=== PATIENT | male | born 1990 | race Hispanic/Latino ===

== ENCOUNTER 2018-01-27 15:52 | Emergency (ER) | payer OTHER ==
[2018-01-27 15:56] VITALS: BP 112/67; RESP 16; TEMP 98.4; O2SAT 97
[2018-01-27 16:48] LABS: BASO % 0.6 % (0.0-2.0); EOS # 0.1 K/uL (0.0-0.7); EOS % 2.3 % (0.0-4.0); HEMOGLOBIN 13.8 g/dL (12.0-18.0); LYMPH # 1.4 K/uL (1.0-4.3); MEAN CELL VOLUME 88.4 fl (80.0-94.0); MEAN CORPUSCULAR HEMOGLOBIN 29.5 pg (27.0-31.0); MEAN CORPUSCULAR HGB CONC 33.3 g/dL (33.0-37.0); MONO # 0.4 K/uL (0.0-0.8); MONO % 6.6 % (0.0-10.0); NEUT # 4.1 K/uL (1.8-7.0); NEUT % 67.5 % (50.0-75.0); RBC 4.69 Mil/uL (4.40-5.90); RED CELL DISTRIBUTION WIDTH 13.1 % (11.5-14.5)
--- NOTE | 2018-01-27 16:50 | ED PDOC ---
HPI: Seizure Time Seen by Provider: 01/27/18 15:59 Chief Complaint (Nursing): Seizure Chief Complaint (Provider): Seizure History Per: Patient History/Exam Limitations: no limitations Recent Seizure Activity Began: Just Before Arrival Number Of Seizures: One Length Of Seizures (Duration): Seconds (30) Associated Symptoms: denies: Bit Tongue, Incontinence Of Urine, Incontinence Of Stool Post-ictal Period: No Additional Complaint(s): 27 y/o male with no significant PMHx presents to the ED complaining of back pain , onset Wednesday. Patient reports pain began after waking up from a nap on his couch. Patient states he was in the same "funny" position for a few hours. Patient reports pain has worsened since onset. Patient also reports of taking Advil and aleve with minimal relief. Patient went to [facility] today and during his evaluation, the provider caused a lot of pain in his back. Patient reports he lost consciousness and woke up 30 seconds later. Patient was told he fainted but also had convulsive activity. In addition, patient complains of numbness to his right great toe that has been ongoing for months intermittently. Denies urine incontinence, tongue injury, post-ictal state, waking up with fogginess, head injury, history of fainting episodes, bowel and urinary incontinence/ retention, leg weakness, fever, chills, night sweats, unexplained weight loss, hematuria, dysuria and frequency. PMD: No Provider Past Medical History Reviewed: Historical Data, Nursing Documentation, Vital Signs Vital Signs: Last Vital Signs Temp 98.4 F 01/27/18 15:56 Pulse 60 01/27/18 18:06 Resp 16 01/27/18 15:56 BP 112/67 01/27/18 15:56 Pulse Ox 97 01/27/18 18:06 - Medical History PMH: No Chronic Diseases - Surgical History Surgical History: No Surg Hx - Family History Family History: States: No Known Family Hx - Social History Current smoker - smoking cessation education provided: No - Home Medications Home Medications: Ambulatory Orders Medication Instructions Recorded Cyclobenzaprine [Flexeril] 5 mg PO Q8 PRN #15 tab 01/27/18 Ibuprofen [Motrin Tab] 600 mg PO Q8 PRN #60 tab 01/27/18 Lidocaine 5% [Lidoderm] 1 ea TD DAILY PRN #20 patch 01/27/18 traMADol [Ultram] 50 mg PO TID #15 tab 01/27/18 - Allergies Allergies/Adverse Reactions: Allergies Allergy/AdvReac Type Severity Reaction Status Date / Time No Known Allergies Allergy Verified 01/27/18 15:55 Review of Systems ROS Statement: Except As Marked, All Systems Reviewed And Found Negative (as per HPI) Constitutional: Negative for: Fever, Chills, Sweats (night), Other (post-ictal state, fogginess, head injury, unexplained weight loss) ENT: Negative for: Other (Tongue biting) Genitourinary Male: Negative for: Dysuria, Frequency, Incontinence, Hematuria Musculoskeletal: Positive for: Back Pain Neurological: Positive for: Seizures (Possible), Other (loss of conciousness). Negative for: Weakness (leg) Physical Exam - Reviewed Nursing Documentation Reviewed: Yes Vital Signs Reviewed: Yes - Physical Exam Appears: Positive for: Well, Non-toxic, In Acute Distress (mild, painful distress) Back: Positive for: Normal Inspection, Muscle Spasm, Other (Tenderness to palpation to the midline Lumbar spine, no step off or prepidice. Mild paraspinal lumbar tenderness to palpation with mild spasm; Negative bilateral straight leg raise.) Neurologic/Psych: Positive for: Alert, Oriented, Other (5/5 strength in the bilateral lower extremities). Negative for: Motor/Sensory Deficits - Laboratory Results Result Diagrams: 01/27/18 16:40 01/27/18 16:40 - ECG ECG Rhythm: Positive for: Normal QRS, Normal ST Segment, Sinus Rhythm Rate: 60 O2 Sat by Pulse Oximetry: 97 (RA) Pulse Ox Interpretation: Normal Medical Decision Making Medical Decision Making: Time: 1640 Impression: Acute back pain and syncope Differentials include but not limited to Herniated risk, muscle strain, muscle spasms, electrolyte abnormality, anemia, arrhythmia and dehydration. Plan: -- EKG -- CMP -- Magnesium -- Phosphorus -- CBC with differentials -- Glucose, POC -- Flexeril 10 mg PO -- Lidoderm 1 ea TD -- Toradol 15 mg IVP -- Tylenol 975 mg PO -- IV Insertion -- LS Spine AP/LAT XR Accession No. : [id number] Patient Name / ID : PATTIE FRANCIS / [id number] Exam Date : 01/27/2018 16:23:47 ( Approved ) Study Comment : Sex / Age : M / 27Y Creator : Melinda Scott V. Dictator : Melinda Scott V. Emt B : Tariff Supervisor : Melinda Scott V. Approver2 : Report Date : 01/27/2018 17:04:53 My Comment : Date of service: 01/27/2018 PROCEDURE: Radiographs of the Lumbar Spine. HISTORY: back pain severe lumbar COMPARISON: No prior. FINDINGS: BONES: Normal alignment. No listhesis. No fracture. DISC SPACES: L4-5 disc space narrowing OTHER FINDINGS: On the frontal view there is S tubing projecting over the GE junction- this may be extrinsic to the patient. Not seen on the lateral views. Correlate clinically. IMPRESSION: No osseous abnormality appreciated. L4-5 disc space narrowing Other findings -as above. Labs unremarkable DW pt findings and plan of care. Conservative management. Follow up PMD/ physical therapy. Questions/concerns answered/addressed. Scribe Attestation: Documented by Sintia Daly acting as a scribe for Dr. Tere Garcia. Provider Scribe Attestation: All medical record entries made by the Scribe were at my direction and personally dictated by me. I have reviewed the chart and agree that the record accurately reflects my personal performance of the history, physical exam, medical decision making, and the department course for this patient. I have also personally directed, reviewed, and agree with the discharge instructions and disposition. Disposition - Clinical Impression Clinical Impression: Low back pain, Syncope Counseled Patient/Family Regarding: Studies Performed, Diagnosis, Need For Followup, Rx Given - Disposition Referrals: [facility] [Outside] - 01/28/18 Disposition: Routine/Home Disposition Time: 18:43 Condition: STABLE Additional Instructions: FOLLOW UP WITH YOUR DOCTOR OR [facility] IN 24-48 HOURS FOR REEVALUATION AND FOR ASSISTANCE WITH REFERRAL TO PHYSICAL THERAPY TAKE MEDICATIONS PRESCRIBED RETURN TO ER IMMEDIATELY FOR: --SEVERE INTRACTABLE PAIN --DENSE NUMBNESS OR WEAKNESS OF LEGS --BOWEL OR URINE INCONTINENCE --ANY OTHER WORRISOME SYMPTOMS TITO BLANKENSHIP, thank you for letting us take care of you today. Your provider was Tere Garcia MD and you were treated for back pain and fainting. The emergency medical care you received today was directed at your acute symptoms. If you were prescribed any medication, please fill it and take as directed. It may take several days for your symptoms to resolve. Return to the Emergency Department if your symptoms worsen, do not improve, or if you have any other problems. Please contact your doctor or call one of the physicians/clinics you have been referred to that are listed on the Patient Visit Information form that is included in your discharge packet. Bring any paperwork you were given at discharge with you along with any medications you are taking to your follow up visit. Our treatment cannot replace ongoing medical care by a primary care provider outside of the emergency department. Thank you for allowing the [facility] team to be part of your care today. Prescriptions: Cyclobenzaprine [Flexeril] 5 mg PO Q8 PRN #15 tab PRN Reason: muscle spasm Ibuprofen [Motrin Tab] 600 mg PO Q8 PRN #60 tab PRN Reason: Pain, Moderate (4-7) Lidocaine 5% [Lidoderm] 1 ea TD DAILY PRN #20 patch PRN Reason: PAIN traMADol [Ultram] 50 mg PO TID #15 tab Instructions: Low Back Pain in Adults, Syncope (Fainting) (DC) Forms: [employer] ([place]), [facility] ED School/Work Excuse
[2018-01-27] MEDS ORDERED: Lidocaine 5% Patch TD ONE (16:59)
[2018-01-27] MEDS: Lidocaine 5% Patch TD STA (16:59)
[2018-01-27 17:03] VITALS: PULSE 60
[2018-01-27] MEDS: Sodium Chloride 0.9% 1,000 ML IV STA (17:04)
[2018-01-27 17:06] LABS: ALB/GLOB RATIO 1.7 (1.0-2.1); ALT/SGPT 25 U/L (21-72); AST/SGOT 21 U/L (17-59); BLOOD UREA NITROGEN 13 mg/dl (9-20); CALCIUM 9.1 mg/dL (8.4-10.2); GFR AFRICAN-AMERICAN > 60; GFR NON-AFRICAN AMERICAN > 60
--- NOTE | 2018-01-27 17:06 | RAD ---
Date of service: 01/27/2018 PROCEDURE: Radiographs of the Lumbar Spine. HISTORY: back pain severe lumbar COMPARISON: No prior. FINDINGS: BONES: Normal alignment. No listhesis. No fracture. DISC SPACES: L4-5 disc space narrowing OTHER FINDINGS: On the frontal view there is S tubing projecting over the GE junction- this may be extrinsic to the patient. Not seen on the lateral views. Correlate clinically. IMPRESSION: No osseous abnormality appreciated. L4-5 disc space narrowing Other findings -as above.
--- NOTE | 2018-01-28 07:22 | CARD ---
APPROVED REPORT Date of service: 01/27/2018 <Conclusion> Normal sinus rhythm Normal ECG
== END 2018-01-27 19:02 | disposition home or self-care (01) ==
LOC: H.ER 15:52
DX: R55 Syncope and collapse (principal); M54.5 Low back pain
CPT/HCPCS: 72100; 80053; 82948; 83735; 84100; 85025; 93005; 96361; 96374; 99283; J1885; J7030